=== PATIENT | female | born 1980 | race Caucasian/White ===

== ENCOUNTER 2019-02-15 07:53 | Emergency (ER) | payer MEDICAID, OTHER ==
[~2019-02-15] VITALS: Ht 157.5 cm; Wt 55.5 kg
[~2019-02-15 07:53] MED LIST: BEN25 PO; FAMO-96 PO; FERR-55 PO; PRED20TA PO; PREN1TAB49 PO
[2019-02-15 08:02] VITALS: BP 115/64; PULSE 69; RESP 18; Ht 157.5 cm; Wt 55.5 kg
[2019-02-15] MEDS ORDERED: FAMOTIDINE 20 MG INJ IV STA (08:17)
[2019-02-15] MEDS ORDERED: DIPHENHYDRAMINE 50 MG INJ IV STA (08:17)
[2019-02-15] MEDS ORDERED: METHYLPREDNISOLONE 125 MG INJ IV STA (08:17)
== END 2019-02-15 09:32 | disposition home or self-care (01) ==
LOC: FTE 07:53
DX: R22.0 Localized swelling, mass and lump, head (principal)
CPT/HCPCS: 81025; 96374; 96375; J1200; J2930; Z7502; Z7610